=== PATIENT | female | born 1990 | race African-American/Black ===

== ENCOUNTER 2016-10-04 16:27 | Emergency (ER) | payer MEDICAID ==
[~2016-10-04] VITALS: Ht 160 cm; Wt 78.9 kg
[~2016-10-04 16:27] MED LIST: ALBUAER3 IN
[2016-10-04 17:20] VITALS: BP 128/81
[2016-10-04 19:32] LABS: Urine Bilirubin Negative (Negative); Urine Blood TRACE /uL (Negative); Urine Color Colorless (Yellow); Urine Glucose Normal (Normal); Urine Ketone Negative (Negative); Urine Nitrite Negative (Negative); Urine RBC <1 /hpf (0 - 4); Urine Urobilinogen Normal (Negative); Urine pH 5.5 (5.0-8.0)
[2016-10-04 19:36] LABS: Hemoglobin 12.4 g/dL (12.2-16.2); Mean Corpuscular Hemoglobin 27.2 pg (28.0-32.0); SUSPECT VIEW TRANSMISSION
[2016-10-04 19:44] LABS: Hematocrit 38.8 % (36.0-46.0); Mean Corpuscular Volume 85.1 fL (80.0-100.0); Mean Platelet Volume 8.7 fL (7.4-10.4); Platelet Count (auto) 377 10^3/uL (140-450); Red Cell Distribution Width 13.5 % (11.6-16.0)
[2016-10-04 19:50] LABS: Metamyelocytes % 0; Myelocytes % 0; Promyelocytes % 0; Reactive Lymphocytes 0
[2016-10-04 19:52] LABS: Albumin 3.8 g/dL (3.4-5.0); BUN/Creatinine Ratio 11.6; Bilirubin, Total 0.6 mg/dL (0.2-1.0); Calcium 8.8 mg/dL (8.5-10.1); Potassium 3.9 mmol/L (3.5-5.1); Total Protein 7.7 g/dL (6.4-8.2)
[2016-10-04 20:18] LABS: Platelet Estimate Adequate
== END 2016-10-04 23:15 | disposition left against medical advice (07) ==
LOC: ER 16:30
DX: R11.2 Nausea with vomiting, unspecified (principal); R19.7 Diarrhea, unspecified; R05 Cough; R09.81 Nasal congestion; Z53.21 Procedure and treatment not carried out due to patient leaving prior to being seen by health care provider
CPT/HCPCS: 36415; 80053; 81001; 85007; 85027